=== PATIENT | male | born 1995 | race Two or more races ===

== ENCOUNTER 2017-10-30 01:11 | Emergency (ER) | payer SELFPAY ==
[~2017-10-30] VITALS: Ht 167.6 cm; Wt 87.1 kg
--- NOTE | 2017-10-30 01:11 | NUR ---
[address]IB [address] C/O "ASSAULT", C/O HEAD AND L JAW PAIN. - LOC. VSS NAD WILL CONTINUE TO MONITOR FOR ANY CHANGES
[2017-10-30 04:58] VITALS: BP 126/76
== END 2017-10-30 04:58 | disposition home or self-care (01) ==
LOC: ER 01:12
DX: S00.83XA Contusion of other part of head, initial encounter (principal); R51 Headache; Y04.8XXA Assault by other bodily force, initial encounter; Y93.89 Activity, other specified; Y92.89 Other specified places as the place of occurrence of the external cause; Y99.8 Other external cause status
CPT/HCPCS: 70450-TC; 70486-TC; A4606; Z7610